=== PATIENT | male | born 1950 | race Caucasian/White ===

== ENCOUNTER 2024-09-27 09:48 | Day surgery (SDC) | payer MEDICARE, OTHER ==
[~2024-09-27] VITALS: Ht 190.5 cm; Wt 111.3 kg
[~2024-09-27 09:48] MED LIST: AMLODIPINE BESY10 MG PO; CEFAZOLIN SODIUM 2 GM/20 ML SYR IV SCH; ECOTRIN81 MG PO; IBLOOD GLUCOSE TEST STRIP 1 EA TEST VI PRN; LACTATED RINGER'S 1,000 ML IV SCH; LIDOCAINE HCL 1% 5 ML SDV INJ ONE; MIDAZOLAM HCL 5 MG/5 ML VIAL IV PRN; fentaNYL citrate 100 MCG/2 ML VIAL IV PRN
[2024-09-27 10:14] VITALS: BP 152/101
[2024-09-27 10:35] VITALS: BP 147/91
[2024-09-27] MEDS ORDERED: fentaNYL citrate 100 MCG/2 ML VIAL ONE (12:14)
[2024-09-27] MEDS ORDERED: MIDAZOLAM HCL 5 MG/5 ML VIAL ONE (12:18)
--- NOTE | 2024-09-27 13:33 | NUR ---
09/27/24 Merlene Davis PATIENT'S OXYGEN SATURATION REMAINS 98% ON 2L VIA NC. OXYGEN IS DISCONTINUED AT THIS TIME.
[2024-09-27 14:16] VITALS: BP 145/90
--- NOTE | 2024-09-28 10:09 | OR ---
[facility] [address], [place] [address] Signed DATE OF OPERATION: 09/27/2024 SURGEON: Javi Wilburn MD PREOPERATIVE DIAGNOSIS: Colon screening. POSTOPERATIVE DIAGNOSES: 1. Sigmoid diverticulosis. 2. Polyps x2. PROCEDURES: Total colonoscopy to cecum with cold snare polypectomy (plus application of hemoclip) x1 and cold morcellation polypectomy x1. ANESTHESIA: Intravenous sedation, fentanyl 150 mcg, Versed 9 mg. INDICATION: This 73-year-old white man is a patient of Dr. Montoya, former primary care provider in [place]. The patient has not yet realigned with a PCP in that area. He last underwent colonoscopy in 2014 where he was found to have diverticulosis and was recommend to have repeat colonoscopy in 10 years. He currently has no symptoms of bleeding, diarrhea, or constipation. He is admitted to undergo colonoscopy as described. He understands the risk of bleeding, infection, and perforation. FINDINGS: The prep was good. Complete colonoscopy was undertaken of the cecum. There was a 1 cm pedunculated polyp at the right transverse colon, which was excised with cold snare technique. Hemostasis was assured with a hemoclip. Another sessile polyp was noted in the sigmoid, which was excised with cold morcellation technique. DESCRIPTION OF PROCEDURE: The patient was brought to the endoscopy suite and placed in lateral decubitus position, given intravenous sedation to the point of slurred speech and nystagmus. Digital rectal examination was normal. An Olympus video colonoscope was passed in the rectum and manipulated throughout the colon noting numerous diverticula both small and large in the sigmoid and left colon. At the right transverse colon was a larger approximately 1 cm or more pedunculated polyp. This was excised with cold snare polypectomy technique. Given the size of the polyp, it was placed in a Bonilla net and extracted and offloaded. Electronically Signed By: JAVI WILBURN MD 09/28/24 1009 PATIENT NAME: CRISPIN ARAMBULA OPERATIVE REPORT DATE OF : 48 REPORT #: [id number] PHYSICIAN: JAVI WILBURN MD PCP: DANIA MONTOYA MD REPORT IS CONFIDENTIAL AND NOT TO BE RELEASED WITHOUT AUTHORIZATION [facility] [address], [place] [address] Signed The scope was reintroduced and passed to the polypectomy site showing persistent oozing of blood. This was secured with a hemoclip. The scope was then advanced beyond this to the hepatic flexure and ultimately the cecum itself. The ileocecal valve and appendiceal orifice were normal. There were a few diverticula in the right colon. The scope was withdrawn and the area of prior biopsy with hemoclip was identified. The right transverse colon appeared to be hemostatic at this point. Remaining colon was examined confirming numerous diverticula of the left colon and sigmoid and a small polyp that was sessile in the region of the sigmoid, which was excised with cold morcellation technique completely. The scope was further withdrawn. The rectum was found to be normal. Retroflexed view showed no abnormalities. Scope was straightened, withdrawn, and removed. The patient was taken to recovery room in good condition. CONCLUDING DIAGNOSIS: Polyps x2 and diverticulosis. PLAN: 1. Recommend repeat colonoscopy in 10 years and a high-fiber diet. 2. He will return to the ongoing care of Dr. Montoya's office as he is planning to establish primary care in that office again. Javi Wilburn MD /MODL /[id number] cc: Dr. Montoya [place], [place] Copies: ~ Electronically Signed By: JAVI WILBURN MD 09/28/24 1009 PATIENT NAME: CRISPIN ARAMBULA OSMAN OPERATIVE REPORT DATE OF : 48 REPORT #: [id number] PHYSICIAN: JAVI WILBURN MD PCP: DANIA MONTOYA MD REPORT IS CONFIDENTIAL AND NOT TO BE RELEASED WITHOUT AUTHORIZATION
--- NOTE | 2024-09-29 12:19 | PATH ---
[facility] [address] [place], [place] [address] Signed SPECIMEN(S): A TRANSVERSE POLYP SPECIMEN(S): B SIGMOID POLYP SPECIMEN SOURCE: A. TRANSVERSE POLYP B. SIGMOID POLYP CLINICAL HISTORY: History of polyps FINAL PATHOLOGIC DIAGNOSIS: A. Transverse polyp: - Inflamed hyperplastic polyp (inflammatory polyp). - Focal epithelial erosion. B. Sigmoid polyp: - Tubular adenoma (one fragment). - Hyperplastic polyp (two fragments). JVR:ammyv MICROSCOPIC EXAMINATION: Histologic sections of all submitted blocks are examined by light microscopy. These findings, together with the gross examination, support the pathologic diagnosis. GROSS DESCRIPTION: A. The specimen, labeled and designated "[place], transverse polyp," is received in formalin and consists of a pink-price to red-brown polypoid piece of tissue (1.1 x 0.8 x 0.7 cm). The possible resection margin is inked blue, and the tissue is bisected to reveal price to red-brown soft cut surfaces. The specimen is submitted entirely in cassette (A1). B. The specimen, labeled and designated "[place], sigmoid polyp," is received in formalin and consists of three price soft tissue fragments, ranging from 0.2-0.4 cm. Entirely submitted in (B1). VB (under the direct supervision of a pathologist) The Gross Description was prepared using a voice recognition system. The report was reviewed for accuracy; however, sound-alike word errors, addition and/or deletions may occur. If there is any question about this report, please contact Client Services. PERFORMING LABORATORY: PATIENT NAME: CRISPIN ARAMBULA PATHOLOGY DATE OF : 48 REPORT #: [id number] PHYSICIAN: BENJAMIN MAURER PCP: DANIA MOJICA MD REPORT IS CONFIDENTIAL AND NOT TO BE RELEASED WITHOUT AUTHORIZATION [address], [place] [address] Signed Technical component was performed by [facility], [address] [place] [address] (CLIA# [id number]). [facility], [address] [place] [id number] (CLIA#: [id number]). Diagnostician: Sunday Chen MD Pathologist Electronically Signed 09/29/2024 Copies: ~ PATIENT NAME: CRISPIN ARAMBULA PATHOLOGY DATE OF : 48 REPORT #: [id number] PHYSICIAN: BENJAMIN MAURER PCP: DANIA MOJICA MD REPORT IS CONFIDENTIAL AND NOT TO BE RELEASED WITHOUT AUTHORIZATION
== END 2024-09-27 14:28 | disposition home or self-care (01) ==
LOC: DS 09:48
PROVIDERS: ATTEND Surgery
PROC: 0DBN8ZX Excision of Sigmoid Colon, Via Natural or Artificial Opening Endoscopic, Diagnostic (ICD-10-PCS; 2024-09-27)
PROC: 0DBL8ZX Excision of Transverse Colon, Via Natural or Artificial Opening Endoscopic, Diagnostic (ICD-10-PCS; principal; 2024-09-27 12:15)
DX: Z12.11 Encounter for screening for malignant neoplasm of colon (principal); K51.40 Inflammatory polyps of colon without complications; D12.5 Benign neoplasm of sigmoid colon; K57.30 Diverticulosis of large intestine without perforation or abscess without bleeding; I10 Essential (primary) hypertension; Z86.0101 Personal history of adenomatous and serrated colon polyps; Z88.2 Allergy status to sulfonamides
CPT/HCPCS: 88305; 99153; C1889; G0500; J0690; J2250; J3010; J7121